=== PATIENT | male | born 1975 | race Caucasian/White ===

== ENCOUNTER 2016-09-25 10:13 | Outpatient (CLI) ==
[2015-08-12 16:03] VITALS: BMI 37.5
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
== END 2016-09-25 10:14 | disposition home or self-care (01) ==
LOC: RAD 10:13
PROVIDERS: ATTEND Family Medicine
DX: M25.511 Pain in right shoulder (principal); G89.29 Other chronic pain

== ENCOUNTER 2017-01-24 00:31 | Emergency (ER) ==
[2017-01-24 00:31] VITALS: BMI 37.5
[2017-01-24 00:37] VITALS: BP 186/92; TEMP 98.3
[2017-01-24] MEDS ORDERED: TORADOL IM STA (00:51)
--- NOTE | 2017-01-24 00:55 | ED.PDOC ---
General ED Provider: Dr. ALVARO HEMPHILL Chief Complaint: Extremity Pain/Injury Stated Complaint: Pateint is a 41 year old who comes to the ER after he had a shoulder arthroscope one week ago with complints of Right shoulder pain. He was on Percocets ran out just filled hydrocodone today and took two tables prior to arrival. Has not been taking any antiinflamatory medicaitons. States the pain is severe with limited mobilty. Has a follow up APT with ortho in february. Time Seen by Physician: 00:52 Mode of Arrival: Walk-In Information Source: Patient Exam Limitations: No limitations Primary Care Provider: YUE SIERRA Nursing and Triage Documentation Reviewed and Agree: Yes Musculoskeletal Complaint Exam - Shoulder Pain Complaint/Exam Mechanism of Injury: Reports: No known trauma Symptoms Are: Still present Timing: Constant Location: Reports: Discrete (Shoulder joint ) Character: Reports: Aching, Throbbing Alleviating: Reports: None Aggravating: Reports: Movement, Lifting Associated Signs and Symptoms: Reports: Swelling DVT Risk Factors: Reports: None Septic Arthritis Risk Factors: Reports: None Related Surgical History: Reports: Other Orthopedic Surgery Shoulder Findings: Present: Swelling Tenderness: Present: AC joint, Rotator cuff muscles Limited Range of Motion: Present: Abduction, Extension, Internal rotation, Rotator cuff muscles Shoulder Picture: 1 - pain with no redness or fullness, wound sutures intact healed. Differential Diagnoses: Sprain, Strain Review of Systems - Review Of Systems Constitutional: Reports: No symptoms Musculoskeletal: Reports: Joint pain All Other Systems: Reviewed and Negative Past Medical History - Past Medical History Endocrine: Reports: DM 2 Cardiovascular: Reports: Hypertension Respiratory: Reports: None Hematological: Reports: None Gastrointestinal: Reports: None Genitourinary: Reports: None Neuro/Psych: Reports: None Musculoskeletal: Reports: Back Pain Cancer: Reports: None - Surgical History General Surgical History: Reports: Other (Carpal tunnel) - Family History Family History: Reports: Unknown - Social History Smoking Status: Never smoker Hx Substance Use: No Alcohol Screening: Occasionally - Immunizations Tetanus Shot up to Date: No (unknown) Physical Exam - Physical Exam Appearance: Ill-appearing, Obese Ill-appearing: Mild Pain Distress: Severe Neck: Supple Respiratory: Airway patent, Breath sounds clear, Breath sounds equal, Respirations nonlabored Cardiovascular: RRR, Pulses normal, No rub, No murmur Musculoskeletal: Limited ROM (right shoulder ) Skin: Warm, Dry Psychiatric: Anxious Critical Care Note - Critical Care Note Total Time (mins): 0 Course - Course Orders, Labs, Meds: Orders Category Date Time Status Ketorolac Tromethamine [Toradol] MEDS 01/24/17 00:51 Discontinued 60 mg IM ONCE STA Medications Discontinued Medications Generic Name Dose Route Start Last Admin Trade Name Freq PRN Reason Stop Dose Admin Ketorolac Tromethamine 60 mg 01/24/17 00:51 01/24/17 00:55 Toradol IM 01/24/17 00:52 60 mg ONCE STA Administration Vital Signs: Temp Pulse Resp BP Pulse Ox 01/24/17 00:31 98.3 F 89 20 186/92 H 96 Departure - Departure Time of Disposition: 00:57 Disposition: HOME SELF-CARE Discharge Problem: Shoulder sprain Qualifiers: Encounter type: initial encounter Shoulder sprain type: unspecified sprain Laterality: right Qualifier Code: (S43.401A) Unspecified sprain of right shoulder joint, initial encounter Instructions: Shoulder Sprain (ED) Condition: Fair Pt referred to PMD for follow-up: Yes Additional Instructions: Continue to take your NORCO Follow up with sooner with your ortho surgeon Prescriptions: Ibuprofen [Motrin] 600 mg PO Q6H PRN #30 tablet PRN Reason: Analgesia Allergies/Adverse Reactions: Allergies No Known Allergies Allergy (Verified 01/24/17 00:37) Home Medications: Ambulatory Orders Insulin Glargine,Hum.rec.anlog [Lantus] 80 units .ROUTE BEDTIME 03/15/14 Pravastatin Sodium [Pravachol] 40 mg PO BEDTIME 03/15/14 Sitagliptin Phosphate [Januvia] 100 mg PO DAILY 03/15/14 Ibuprofen [Motrin] 600 mg PO Q6H PRN #30 tablet 01/24/17 Disposition Discussed With: Patient, Family
== END 2017-01-24 01:15 | disposition home or self-care (01) ==
LOC: ED 00:31
DX: S43.401A Unspecified sprain of right shoulder joint, initial encounter (principal); Z98.890 Other specified postprocedural states
CPT/HCPCS: 96372; 99282

== ENCOUNTER 2017-02-02 09:59 | Outpatient (CLI) ==
[2017-02-02 10:33] LABS: CHOL/HDL RATIO 4.1 (4.5-6.4)
== END 2017-02-02 10:00 | disposition home or self-care (01) ==
LOC: LAB 09:59
PROVIDERS: ATTEND Internal Medicine Endocrinology, Diabetes & Metabolism
DX: E11.65 Type 2 diabetes mellitus with hyperglycemia (principal)
CPT/HCPCS: 36415; 80061; 83036

== ENCOUNTER 2017-03-29 08:50 | Outpatient (CLI) ==
--- NOTE | 2017-03-30 09:32 | MRI ---
EXAM: Cervical spine MRI without contrast. HISTORY: Neck pain. COMPARISON: Cervical spine CT scan 03/15/2014. TECHNIQUE: Multiplanar, multisequence MR images were acquired of the cervical spine without contras t. FINDINGS: The craniocervical junction is unremarkable and the cervical cord has normal signal inten sity. There is minor mid cervical levoscoliosis centered at C4-5 and straightening of the usual cer vical lordosis. There is osteophytosis with disc space narrowing at C4-5 and prominent ventral spon dylosis at this level and at C6-7. Canal diameter is developmentally narrow. There are no paravert ebral masses. Visualized lung apices are clear. C2-3: The intervertebral disc is normal. There is left uncovertebral hypertrophy which causes left lateral recess stenosis with possible encroachment on the ventral left C3 nerve root and mild to mod erate left neural foraminal stenosis. C3-4: There is a mild posterior disc osteophyte complex that is asymmetric to the right with a prob able small superimposed right posterolateral disc protrusion. This effaces the right lateral recess where may adversely contact the ventral right C4 nerve root. Bilateral uncovertebral hypertrophy i s present, greater on the right and there is mild right hypertrophic facet arthropathy. This causes right lateral recess stenosis and moderate right neural foraminal stenosis. C4-5: There is a diffuse disc osteophyte complex and a moderate central disc extrusion with endplat e osteophytes that mildly indents the cervical cord and narrows both lateral recesses. Left greater than right uncovertebral hypertrophy is present. There is mild to moderate bilateral neural forami nal stenosis and bilateral lateral recess stenosis where there may be encroachment on the ventral C5 nerve roots bilaterally. There is mild spinal stenosis. AP diameter of the thecal sac is 8.6 mm. C5-6: There is a mild posterior disc osteophyte complex that is asymmetric to the left with a small left paracentral disc protrusion and bilateral uncovertebral hypertrophy. Ligamentum flavum hypert rophy is present without spinal stenosis. There is minor left and mild right neural foraminal steno sis. C6-7: There is a diffuse disc osteophyte complex, ligamentum flavum hypertrophy and minor bilateral uncovertebral hypertrophy. There is mild left neural foraminal stenosis. C7-T1: There is a minor disc bulge. IMPRESSION: 1. 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 2. Probable small right posterolateral disc protrusion C3-4 that may encroach on the right ventral C4 nerve root. 3. Small left paracentral disc protrusion C5-6. 4. Mild to moderate left C2-3, moderate right C3-4 and mild to moderate bilateral C4-5 neural ashlie inal stenosis.
== END 2017-03-29 08:51 | disposition home or self-care (01) ==
LOC: RAD 08:50
PROVIDERS: ATTEND Family Medicine
DX: M54.2 Cervicalgia (principal)

== ENCOUNTER 2017-04-19 13:00 | Outpatient (RCR) ==
--- NOTE | 2017-04-06 16:10 | RS.OPPTEV2 ---
Date of Note: 04/05/17 Visit #: 1 Date of Evaluation: 04/05/17 Payer Source: Medicaid Surgery Performed?: Yes Procedure Performed: Bicep tenodesis Date of Procedure: 01/17/17 Treatment Diagnosis: Right shoulder stiffness, decreased functional strength History of Condition/Mechanism of Injury:: Patient reports wearing a sling to the right shoulder for 3 days after surgery. States he was told not to use the arm for a couple of months. States he has followed instructions and just now has started to try to use the arm more. Prior Level of Function.....Patient was independent with: ADL's, Self Care, Caregiving, Ambulation/Mobility, Community Integration/Access Functional Limitations: Sleep, Self Care, ADL's, Reaching, Pushing, Pulling, Lifting, Carrying, Community Access/Integration Current Subjective/complaints:: Patient reports not having a whole lot of pain in the right shoulder. States he does have times of nerve pain that he feels is from his neck. Denies tingling or numbness into the right UE. States he does experience a warm feeling in the area of the surgery site at times. He has let pain guide him on how much to move the arm. States the arm mainly feels tight. States he has tightness when trying to reach the right UE across his body to apply deodorant to the left arm. Also reports tightness with getting his hand behind his head or with reaching towards back pocket. He is currently not working. Treatment Side (optional): Right Medical History Medical History: Unremarkable Surgical History Comments:: Carpal Tunnel release bilaterally Smoking Status: Never smoker Patient's Goals: His goal is to regain full AROM of the right UE. Pain Assessment - Pain Description Pain Location: right shoulder Pain Description: Tightness Current Pain Intensity: 1/10 Worst Pain Intensity: 3/10 Functional Outcome Measure UE Functional Index: 78 (78/80=2.5% impairment) Other: Patient's score of UE functional scale does not match his subjective reports. Reports of difficulty reaching would put him in at least a range of 10-15% impairment of use of the right UE - G Codes & Severity Modifier G Codes & Modifier: NA Source of G Code score: NA Observation - Observation Posture: Forward Head, Rounded Shoulders, Scapula Asymmetry (right scapular lower ) Handedness: Right Shoulder ROM: Left WFL's Shoulder Muscle Strength: Left WFL's - Right Shoulder ROM Comments: Active shoulder flexion 110 degrees, abduction 106 degrees, ER 20-25 degrees. Passive shoulder flexion to 130 degrees, abduction 110-115 degrees, ER 30 degrees. - Right Shoulder Strength Right Shoulder Flexion: 4 Good Right Shoulder Extension: 4+ Good + Right Shoulder Abduction: 4 Good Right Shoulder Adduction: 4+ Good + Right Shoulder External Rotation: 4 Good Right Shoulder Internal Rotation: 4 Good Comments: Right elbow flexion 4/5, extension 4/5. Wrist flexion and extension 4 +/5. Rejected Items Clerk Strength Left Hand Rejected Items Clerk Strength: 90 lbs. Right Hand Rejected Items Clerk Strength: 92 lbs. Dynamometer Testing Position: 2nd Position Sensation - Sensation Right Upper Extremity: Intact/Normal Left Upper Extremity: Intact/Normal Interventions - Exercise/Activities/Manual Therapy Exercises/Activities: Patient instructed in self-stretching exercises of wall walking for shoulder flexion with stretch, wand for AAROM and end range stretch into shoulder abduction, ER stretch standing in door threshold, and posterior shoulder capsule stretch. Manual Therapy: na HOME EXERCISE PROGRAM: self-stretching exercises of wall walking for shoulder flexion with stretch, wand for AAROM and end range stretch into shoulder abduction, ER stretch standing in door threshold, and posterior shoulder capsule stretch. - Charges Total Direct Minutes: 48 mins Total Treatment Time: 48 mins Procedures billed for this date of service:: KORTNEY LUNA X 2 Assessment Assessment: Patient presents to therapy with a diagnosis of s/p procedure to the right shoulder involving biceps tenodesis. He reports mainly the feeling of stiffness and limited ROM. He exhibits general weakness of the right UE and limited active and passive ROM. He is right hand dominant. He will benefit from skilled therapy to gain functional AROM and for appropriately progressed strengthening exercises. Patient Education: Education of diagnosis, Body/Joint mechanics, Home Exercise Program, Activity Modification, Education of Plan of Care Rehab Potential: Good Short Term Goals Goal #1: Pt independent in initial HEP. Goal to be met by: 04/20/17 Goal #2: PROM of right shoulder WFL's. Goal to be met by: 04/20/17 Goal #3: AROM right shoulder ER to 45 degrees. Goal to be met by: 04/20/17 Yard Labor Supervisor Goals Goal #1: Patient knows HEP and to continue ex's to maintain functional level at D/C. Goal to be met by: 05/21/17 Goal #2: Right shoulder AROM WFL's to perform all ADL's and selfcare. Goal to be met by: 05/21/17 Goal #3: Pt able to use right UE for all activities/reaching without pain. Goal to be met by: 05/21/17 Goal #4: Pt to demonstrate improved postural awareness. Goal to be met by: 05/21/17 Plan - Treatment to be Provided Procedures: Therapeutic Exercises, Therapeutic Activity, Manual Therapy, Patient Education Modalities: Electrical Stimulation, Ultrasound/Phonophoresis, Cryotherapy, Hot Packs - Treatment Plan Frequency: 3 X week Duration: 6 weeks ORDER # VISITS AND/OR THROUGH DATE: 05/21/17 - Treatment Code (1) Stiffness of right shoulder joint Comments: M25.611 (2) S/P operative procedure on shoulder Comments: Z98.890
--- NOTE | 2017-04-09 16:18 | RS.OPPTDN ---
Subjective Date of Note: 04/09/17 Visit #: 2 Date of Evaluation: 04/05/17 Payer Source: Medicaid Treatment Diagnosis: Right shoulder stiffness, decreased functional strength Current Subjective/complaints:: Patient says his motion is improving, but is stiff today. Says he also has back pain, so it is hard to assess. Says he is doing HEP. Pain Assessment - Pain Description Pain Location: right shoulder Pain Description: Tightness Current Pain Intensity: does not rate - Heat/Cryotherapy Treatment: Hot Pack (10 mins to the R shoulder in sitting) Interventions - Exercise/Activities/Manual Therapy Exercises/Activities: Patient receives PROM/gentle stretching all dir in supine. Performs shoulder shrugs, scap adduction, pulleys for flex/abd x 5 mins. Total minutes of Exercise: 30 Manual Therapy: na HOME EXERCISE PROGRAM: self-stretching exercises of wall walking for shoulder flexion with stretch, wand for AAROM and end range stretch into shoulder abduction, ER stretch standing in door threshold, and posterior shoulder capsule stretch. - Charges Total Direct Minutes: 30 Total Treatment Time: 40 Procedures billed for this date of service:: hp, ex2 Assessment: Patient with mild pain today to the anterior aspect of the shoulder and at incision. He is tight and guarded initially with PROM, but is able to relax and demo increased mobility in all dir. Patient Education: Education of diagnosis, Body/Joint mechanics, Home Exercise Program, Home Safety, Activity Modification, Education of Plan of Care Patient demonstrates compliance with HEP?: Yes Short Term Goals Goal #1: Pt independent in initial HEP. Goal to be met by: 04/20/17 Progress towards Goal:: Progressing Goal #2: PROM of right shoulder WFL's. Goal to be met by: 04/20/17 Progress towards Goal:: Progressing Goal #3: AROM right shoulder ER to 45 degrees. Goal to be met by: 04/20/17 Correction Goals Goal #1: Patient knows HEP and to continue ex's to maintain functional level at D/C. Goal to be met by: 05/21/17 Goal #2: Right shoulder AROM WFL's to perform all ADL's and selfcare. Goal to be met by: 05/21/17 Goal #3: Pt able to use right UE for all activities/reaching without pain. Goal to be met by: 05/21/17 Goal #4: Pt to demonstrate improved postural awareness. Goal to be met by: 05/21/17 Plan PLAN OF CARE EXPIRES ON:: 05/21/17 ORDER # VISITS AND/OR THROUGH DATE: 05/21/17 PLAN: Progress Exercises
--- NOTE | 2017-04-11 11:51 | RS.OPPTDN ---
Subjective Date of Note: 04/11/17 Visit #: 3 Date of Evaluation: 04/05/17 Payer Source: Medicaid Treatment Diagnosis: Right shoulder stiffness, decreased functional strength Current Subjective/complaints:: Patient c/o something mechanically not feeling right in the R shoulder. He says therapy did make his arm more flexible on last session, but still the back and front of the shoulder does not feel like it should. He says this is the same feeling he had prior to surgery as well. Pain Assessment - Pain Description Pain Location: right shoulder Pain Description: Burning ("discomfort" rather than pain), Tightness Current Pain Intensity: does not rate Interventions - Exercise/Activities/Manual Therapy Exercises/Activities: Patient receives PROM/gentle stretching all dir in supine which was primary focus. 1# wand for bilateral shoulder flexion for self stretch in supine x 10. Began isometric shoulder flex/ext/ER/IR x 5. Sitting for wand exercise shoulder flexion and abd 2x5 to fatigue in order to provide increased mobility. Performs shoulder shrugs, scap adduction, pulleys for flex/ abd x 5 mins. Total minutes of Exercise: 38 Manual Therapy: na HOME EXERCISE PROGRAM: self-stretching exercises of wall walking for shoulder flexion with stretch, wand for AAROM and end range stretch into shoulder abduction, ER stretch standing in door threshold, and posterior shoulder capsule stretch. - Charges Total Direct Minutes: 38 Total Treatment Time: 38 Procedures billed for this date of service:: ex3 Assessment: Patient able to relax as PROM progresses. He admits discomfort at end ranges and is able to resist with all dir of isometrics with exception of IR. Demo AAROM with wand supine and sitting WFL for flexion and abd today. Patient Education: Education of diagnosis, Body/Joint mechanics, Home Exercise Program, Home Safety, Activity Modification, Education of Plan of Care Patient demonstrates compliance with HEP?: Yes Short Term Goals Goal #1: Pt independent in initial HEP. Goal to be met by: 04/20/17 Progress towards Goal:: Progressing Goal #2: PROM of right shoulder WFL's. Goal to be met by: 04/20/17 Progress towards Goal:: Progressing Goal #3: AROM right shoulder ER to 45 degrees. Goal to be met by: 04/20/17 Progress towards Goal:: Progressing Rn Labor Delivery Goals Goal #1: Patient knows HEP and to continue ex's to maintain functional level at D/C. Goal to be met by: 05/21/17 Goal #2: Right shoulder AROM WFL's to perform all ADL's and selfcare. Goal to be met by: 05/21/17 Goal #3: Pt able to use right UE for all activities/reaching without pain. Goal to be met by: 05/21/17 Goal #4: Pt to demonstrate improved postural awareness. Goal to be met by: 05/21/17 Plan PLAN OF CARE EXPIRES ON:: 05/21/17 ORDER # VISITS AND/OR THROUGH DATE: 05/21/17 PLAN: Progress Exercises
--- NOTE | 2017-04-16 14:31 | RS.OPPTDN ---
Subjective Date of Note: 04/16/17 Visit #: 4 Date of Evaluation: 04/05/17 Payer Source: Medicaid Treatment Diagnosis: Right shoulder stiffness, decreased functional strength Current Subjective/complaints:: Patient says his shoulder has been doing better. He says he thinks he just needs strengthening, but admits the moist heat seemed to improve his mobility at last weeks appt. Pain Assessment - Pain Description Pain Location: right shoulder Pain Description: Burning ("discomfort" rather than pain), Tightness Current Pain Intensity: does not rate - Heat/Cryotherapy Treatment: Hot Pack (12 mins to the R shoulder in sitting) Interventions - Exercise/Activities/Manual Therapy Exercises/Activities: Patient receives stretching all dir in supine which was primary focus. 2# wand for bilateral shoulder flexion for self stretch in supine x 12. Began isometric shoulder flex/ext/ER/IR/elbow flex/ext 2 x 5. Sitting for wand exercise shoulder flexion and abd 2x5 to fatigue in order to provide increased mobility. Performs shoulder shrugs, scap adduction. Measurements taken. Total minutes of Exercise: 34 Manual Therapy: na HOME EXERCISE PROGRAM: self-stretching exercises of wall walking for shoulder flexion with stretch, wand for AAROM and end range stretch into shoulder abduction, ER stretch standing in door threshold, and posterior shoulder capsule stretch. - Objective Findings Observations,measurements,etc.: AROM 153 degrees flexion, 145 ABD in supine - Charges Total Direct Minutes: 34 Total Treatment Time: 46 Procedures billed for this date of service:: hp, ex2 Assessment: Improved mobility today regarding shoulder flexion/abd. He demo good strength in dir of shoulder and elbow during isometrics. Patient wishing to begin therapy for his neck, which is actually bothering him more right now than the shoulder. He has 2 remaining sessions per his insurance allowance. Patient Education: Education of diagnosis, Body/Joint mechanics, Home Exercise Program, Home Safety, Activity Modification, Education of Plan of Care Patient demonstrates compliance with HEP?: Yes Short Term Goals Goal #1: Pt independent in initial HEP. Goal to be met by: 04/20/17 Progress towards Goal:: Progressing Goal #2: PROM of right shoulder WFL's. Goal to be met by: 04/20/17 Progress towards Goal:: Progressing Goal #3: AROM right shoulder ER to 45 degrees. Goal to be met by: 04/20/17 Progress towards Goal:: Progressing Intermediate Goals Goal #1: Patient knows HEP and to continue ex's to maintain functional level at D/C. Goal to be met by: 05/21/17 Goal #2: Right shoulder AROM WFL's to perform all ADL's and selfcare. Goal to be met by: 05/21/17 Goal #3: Pt able to use right UE for all activities/reaching without pain. Goal to be met by: 05/21/17 Goal #4: Pt to demonstrate improved postural awareness. Goal to be met by: 05/21/17 Plan PLAN OF CARE EXPIRES ON:: 05/21/17 ORDER # VISITS AND/OR THROUGH DATE: 05/21/17 PLAN: Progress Exercises (Patient wishes to continue with shoulder therapy and then requests to begin neck rehab)
--- NOTE | 2017-04-19 15:27 | RS.OPPTDC ---
Date of Discharge: 04/19/17 Date of Evaluation: 04/05/17 Number of Visits: 5 Treatment Diagnosis: Right shoulder stiffness, decreased functional strength Current Level of Function: Patient reports being able to perform all ADL's without c/o Current Complaints/Gains: Patient experiencing tightness at end ranges flex/abd , but feels strength and ROM will improve as time heals. Patient says his MD released him today and he requests today to be his final visit and await beginning neck rehab in May. Pain Assessment - Pain Description Pain Location: right shoulder Pain Description: Burning ("discomfort" rather than pain), Tightness Pain Description: says none unless at end ranges Current Pain Intensity: does not rate Functional Outcome Measure UE Functional Index: 78 Other: 2% impairment (same as eval) with this being mod difficulty in sleeping, not related to the shoulder however. No difficulty in any section related to function. - G Codes & Severity Modifier G Codes & Modifier: na Source of G Code score: na Interventions - Exercise/Activities/Manual Therapy Exercises/Activities: Patient receives stretching all dir in supine which was primary focus. 3# wand for bilateral shoulder flexion for self stretch and press ups in supine x 12. Continued isometric shoulder flex/ext/ER/IR/ elbow flex/ext 2 x 5. Green tband for shoulder pull downs, biceps/triceps curls, bilateral shoulder ER x 10. Sitting for 2# wand exercise shoulder flexion and abd 2x8 to fatigue in order to provide increased mobility. Manual Therapy: na HOME EXERCISE PROGRAM: self-stretching exercises of wall walking for shoulder flexion with stretch, wand for AAROM and end range stretch into shoulder abduction, ER stretch standing in door threshold, and posterior shoulder capsule stretch. - Charges Total Direct Minutes: 35 Total Treatment Time: 35 Procedures billed for this date of service:: ex2 Assessment Assessment: Patient shows not deficit or c/o's with ADLs at this point and demo 165 degrees of shoulder flexion/abd to 160. He maintains little to no pain level and is more focused now on receiving therapy for his neck. Patient Education: Education of diagnosis, Body/Joint mechanics, Home Exercise Program, Home Safety, Activity Modification, Education of Plan of Care Rehab Potential: Good Short Term Goals Goal #1: Pt independent in initial HEP. Goal to be met by: 04/20/17 Progress towards Goal:: Met Goal #2: PROM of right shoulder WFL's. Goal to be met by: 04/20/17 Progress towards Goal:: Met Goal #3: AROM right shoulder ER to 45 degrees. Goal to be met by: 04/20/17 Progress towards Goal:: Met Intermediate Goals Goal #1: Patient knows HEP and to continue ex's to maintain functional level at D/C. Goal to be met by: 05/21/17 Progress towards goal: Met Goal #2: Right shoulder AROM WFL's to perform all ADL's and selfcare. Goal to be met by: 05/21/17 Progress towards goal: Met Goal #3: Pt able to use right UE for all activities/reaching without pain. Goal to be met by: 05/21/17 Progress towards goal: Met Goal #4: Pt to demonstrate improved postural awareness. Goal to be met by: 05/21/17 Progress towards goal: Met Plan Reason for Discharge:: Self-Discharge (All goals met and patient will be beginning therapy for his neck in May.)
== END 2017-05-03 ==
PROVIDERS: ATTEND Orthopaedic Surgery
DX: Z98.890 Other specified postprocedural states (principal); M25.511 Pain in right shoulder

== ENCOUNTER 2017-05-08 14:38 | Outpatient (CLI) ==
[2017-05-08 15:30] LABS: ALBUMIN 3.6 g/dL (3.4-5.0); ALBUMIN/GLOBULIN RATIO 1.13; ANION GAP 14.5; BILIRUBIN,TOTAL 0.34 mg/dL (0.00-1.20); BUN/CREATININE RATIO 14.28; CALCIUM 9.5 mg/dL (8.2-10.2); CHOL/HDL RATIO 4.5 (4.5-6.4); CREATININE 0.77 mg/dL (0.60-1.10); POTASSIUM 4.5 mmol/L (3.5-5.1); TOTAL PROTEIN 6.8 g/dL (6.4-8.2)
[2017-05-09 06:11] LABS: TESTOSTERONE 232 ng/dL (264-916)
[2017-05-09 19:09] LABS: FREE TESTOSTERONE 4.2 pg/mL (6.8-21.5)
== END 2017-05-08 14:39 | disposition home or self-care (01) ==
LOC: LAB 14:38
PROVIDERS: ATTEND Internal Medicine Endocrinology, Diabetes & Metabolism
DX: E78.5 Hyperlipidemia, unspecified (principal); E88.81 Metabolic syndrome and other insulin resistance; E11.65 Type 2 diabetes mellitus with hyperglycemia; M48.02 Spinal stenosis, cervical region; M50.20 Other cervical disc displacement, unspecified cervical region
CPT/HCPCS: 36415; 80053; 80061; 82043; 83036; 84402; 84403; 84443

== ENCOUNTER 2017-05-31 13:30 | Outpatient (RCR) ==
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
--- NOTE | 2017-05-22 14:18 | RS.OPPTDN ---
Subjective Date of Note: 05/22/17 Visit #: 2 Date of Evaluation: 05/08/17 Payer Source: Medicaid Treatment Diagnosis: neck pain Current Subjective/complaints:: Patient reports minimal pain currently,has difficulty with sleeping at night. Pain Assessment - Pain Description Pain Location: neck Current Pain Intensity: not rated,described as , " minimal" - Treatment Modality: Ultrasound Parameters/Method Applied: 10 mins. @ 1.5 w/cm2 continuous mode to cervical/ upper traps. region Patient Position: Sitting - Heat/Cryotherapy Treatment: Hot Pack (20 mins in sitting to cervical region) Interventions - Exercise/Activities/Manual Therapy Exercises/Activities: 25 mins. total.Patient instructed in cervical chin tucks, HEP review of lateral flexion,retraction ,rotation and postural awareness.Manual intermittent distraction to C-spine in supine,occipital release. Total minutes of Exercise: 25 Manual Therapy: na Total minutes of Manual Therapy: 0 HOME EXERCISE PROGRAM: cervical lateral flexion, lateral flexion with ipsilateral UE horizontal adduction, scapular retraction. - Charges Total Direct Minutes: 35 Total Treatment Time: 55 Procedures billed for this date of service:: hp,US,ex 2 Assessment: Patient reports stretch discomfort in the mid and low back with cervical distraction while in supine,but no report of sharp pain.He has good return demo of chin tucks combined with cervical distraction.He is attentive to recommendations of the therapy staff. Patient Education: Education of diagnosis, Body/Joint mechanics, Home Exercise Program, Home Safety, Activity Modification, Education of Plan of Care Short Term Goals Goal #1: Pt independent and compliant in initial HEP. Goal to be met by: 05/23/17 Progress towards Goal:: Progressing Goal #2: Muscle tone in upper traps decreased to normal. Goal to be met by: 05/23/17 Goal #3: Cervical AROM WFL's with no pain or tightness. 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 Goal to be met by: 06/23/17 Progress towards goal: Progressing Goal #2: Score on Neck Disability Index improved to 18. Goal to be met by: 06/23/17 Goal #3: Pt able to sleep 6 hours with minimal interruption from neck pain. Goal to be met by: 06/23/17 Goal #4: Pt able to drive without reports of neck pain or stiffness. Goal to be met by: 06/23/17 Plan PLAN OF CARE EXPIRES ON:: 06/23/17 ORDER # VISITS AND/OR THROUGH DATE: 06/23/17 PLAN: Continue Plan of Care
--- NOTE | 2017-05-24 13:59 | RS.OPPTDN ---
Subjective Date of Note: 05/24/17 Visit #: 3 Date of Evaluation: 05/08/17 Payer Source: Medicaid Treatment Diagnosis: neck pain Current Subjective/complaints:: Patient reports no increased discomfort after last session.He reports soreness only today. Pain Assessment - Pain Description Pain Location: neck Other Comments regarding Pain:: soreness - Heat/Cryotherapy Treatment: Hot Pack (20 mins. prior to traction) - Traction Treatment Method: Mechanical, Intermittent, Cervical Patient Position: Supine Amount of Force Applied: 14# Hold Time: 30 secs Rest Time: 5 secs Duration of treatment: 10 mins. Traction Treatment Comment: Tolerates well. Interventions - Exercise/Activities/Manual Therapy Exercises/Activities: HEP review while on traction Total minutes of Exercise: 0 Manual Therapy: na Total minutes of Manual Therapy: 0 HOME EXERCISE PROGRAM: cervical lateral flexion, lateral flexion with ipsilateral UE horizontal adduction, scapular retraction. - Charges Total Direct Minutes: 0 Total Treatment Time: 30 Procedures billed for this date of service:: hp,traction Assessment: Patient reports no pain today during traction.He has good understanding of HEP.We discussed the HEP ,joint protection,and avoiding the , " no pain no gain " theory. Patient Education: Education of diagnosis, Body/Joint mechanics, Home Exercise Program, Home Safety, Activity Modification, Education of Plan of Care Short Term Goals Goal #1: Pt independent and compliant in initial HEP. Goal to be met by: 05/23/17 Progress towards Goal:: Progressing Goal #2: Muscle tone in upper traps decreased to normal. Goal to be met by: 05/23/17 Goal #3: Cervical AROM WFL's with no pain or tightness. Goal to be met by: 05/23/17 Progress towards Goal:: Progressing Resident Buyer Goals Goal #1: Patient knows HEP and to continue ex's to maintain functional level at D/C. Goal to be met by: 06/23/17 Progress towards goal: Progressing Goal #2: Score on Neck Disability Index improved to 18. Goal to be met by: 06/23/17 Goal #3: Pt able to sleep 6 hours with minimal interruption from neck pain. Goal to be met by: 06/23/17 Goal #4: Pt able to drive without reports of neck pain or stiffness. Goal to be met by: 06/23/17 Plan PLAN OF CARE EXPIRES ON:: 06/23/17 ORDER # VISITS AND/OR THROUGH DATE: 06/23/17 PLAN: Progress Exercises
--- NOTE | 2017-05-29 14:16 | RS.OPPTDN ---
Subjective Date of Note: 05/29/17 Visit #: 4 Date of Evaluation: 05/08/17 Payer Source: Medicaid Treatment Diagnosis: neck pain Current Subjective/complaints:: Reports the neck feels more flexible,and is improving.He feels tightness in the sternal notch area at times.He reports he has no difficulty with HEP cervical stretches. He is having difficulty sleeping at night. Pain Assessment - Pain Description Pain Location: neck Pain Description: says none unless at end ranges Current Pain Intensity: not rated,described as , " minimal" - Treatment Modality: Ultrasound Parameters/Method Applied: 10 mins. @ 1.5 w/cm2,continuous mode to cervical/ upper traps. Interventions - Exercise/Activities/Manual Therapy Exercises/Activities: N/A Total minutes of Exercise: 0 Manual Therapy: 15 mins. accupressure and trigger point work in UT's and thoracic paraspinals. Total minutes of Manual Therapy: 15 HOME EXERCISE PROGRAM: cervical lateral flexion, lateral flexion with ipsilateral UE horizontal adduction, scapular retraction. - Charges Total Direct Minutes: 25 Total Treatment Time: 45 Procedures billed for this date of service:: hp,US,ex 1 Short Term Goals Goal #1: Pt independent and compliant in initial HEP. Goal to be met by: 05/23/17 Progress towards Goal:: Progressing Goal #2: Muscle tone in upper traps decreased to normal. Goal to be met by: 05/23/17 Progress towards Goal:: Progressing Goal #3: Cervical AROM WFL's with no pain or tightness. Goal to be met by: 05/23/17 Progress towards Goal:: Progressing Legal Services Professional Goals Goal #1: Patient knows HEP and to continue ex's to maintain functional level at D/C. Goal to be met by: 06/23/17 Progress towards goal: Progressing Goal #2: Score on Neck Disability Index improved to 18. Goal to be met by: 06/23/17 Goal #3: Pt able to sleep 6 hours with minimal interruption from neck pain. Goal to be met by: 06/23/17 Progress towards goal: No Change Goal #4: Pt able to drive without reports of neck pain or stiffness. Goal to be met by: 06/23/17 Plan PLAN OF CARE EXPIRES ON:: 06/23/17 ORDER # VISITS AND/OR THROUGH DATE: 06/23/17 PLAN: Continue Plan of Care
--- NOTE | 2017-05-31 14:19 | RS.OPPTDN ---
Subjective Date of Note: 05/31/17 Visit #: 5 Date of Evaluation: 05/08/17 Payer Source: Medicaid Treatment Diagnosis: neck pain Current Subjective/complaints:: Patient reports the neck is improving ,but continues to feel tight around the neck and chest area. Pain Assessment - Pain Description Pain Location: neck Pain Description: Tightness, Dull Pain Description: says none unless at end ranges Current Pain Intensity: not rated Interventions - Exercise/Activities/Manual Therapy Exercises/Activities: N/A Total minutes of Exercise: 0 Manual Therapy: 40 mins. manual therapy to cervical,upper traps ,and medial borders of the scapulae,with deeper pressure on the L side of the thoracic spine today.Cervical rotation to L is 45 - 48 degrees,R cervical rotation is 55 degrees todayLateal flexion is approx. 35 degrees. Total minutes of Manual Therapy: 40 HOME EXERCISE PROGRAM: cervical lateral flexion, lateral flexion with ipsilateral UE horizontal adduction, scapular retraction. - Charges Total Direct Minutes: 40 Total Treatment Time: 40 Procedures billed for this date of service:: manual 3 Assessment: Patient reports increased relief today after manual therapy.He has improved cervical rotation and lateral flexion with less pain present and less difficulty to rotate.He has increased erythemic response greater on the L ,as opposed to the R today. Patient Education: Body/Joint mechanics, Education of Plan of Care Patient demonstrates compliance with HEP?: Yes Short Term Goals Goal #1: Pt independent and compliant in initial HEP. Goal to be met by: 05/23/17 Progress towards Goal:: Progressing Goal #2: Muscle tone in upper traps decreased to normal. Goal to be met by: 05/23/17 Progress towards Goal:: Progressing Goal #3: Cervical AROM WFL's with no pain or tightness. 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 Goal to be met by: 06/23/17 Progress towards goal: Progressing Goal #2: Score on Neck Disability Index improved to 18. Goal to be met by: 06/23/17 Goal #3: Pt able to sleep 6 hours with minimal interruption from neck pain. Goal to be met by: 06/23/17 (2 hours or less) Progress towards goal: No Change Goal #4: Pt able to drive without reports of neck pain or stiffness. Goal to be met by: 06/23/17 Plan PLAN OF CARE EXPIRES ON:: 06/23/17 ORDER # VISITS AND/OR THROUGH DATE: 06/23/17 PLAN: Continue Plan of Care
== END 2017-06-02 ==
PROVIDERS: ATTEND Nurse Practitioner
DX: M48.02 Spinal stenosis, cervical region (principal); M50.20 Other cervical disc displacement, unspecified cervical region

== ENCOUNTER 2017-10-11 12:42 | Outpatient (CLI) | END 2017-10-11 12:43 | disposition home or self-care (01) | LOC: LAB 12:42 | PROVIDERS: ATTEND Internal Medicine Endocrinology, Diabetes & Metabolism | DX: E11.65 Type 2 diabetes mellitus with hyperglycemia (principal) | CPT/HCPCS: 36415; 82043; 83036 ==

== ENCOUNTER 2018-01-11 14:40 | Outpatient (CLI) | END 2018-01-11 14:41 | disposition home or self-care (01) | LOC: LAB 14:40 | PROVIDERS: ATTEND Internal Medicine Endocrinology, Diabetes & Metabolism | DX: E11.65 Type 2 diabetes mellitus with hyperglycemia (principal) | CPT/HCPCS: 36415; 83036 ==